=== PATIENT | male | born 1950 | race Caucasian/White ===

== ENCOUNTER 2025-04-28 08:26 | Day surgery (SDC) | payer MEDICARE, SELFPAY ==
--- OUTSIDE RECORDS SUMMARY | 2024-02-27 09:32 | XMS_ITS | Encounter Summary ---
Author Organization [facility] [place] [address] Care Team Providers Care Bradder Name Role Phone Kanu Beltrán MD Primary Care Provider [phone] Encounter Details Date Type Department Care Team (Late st Contact Info) Description 02/27/2024 10:32 AM EDT Hospital Encounter TH HISTORIC ENCOUNTERS EASTERN CONVERSION ONLY Renan Eid MD [address] [place] [phone] Social History Tobacco Use Types Packs/Day Years Used Date Smoking Tobacco: Former Smokeless Tobacco: Never Alcohol Use Standard Drinks/Week Comments Yes 0 (1 standard drink = 0.6 oz pur e alcohol) Sex and Gender Information Value Date Recorded Sex Assigned at Not on file Legal Sex Male 5:51 PM EST Gender Identity Not on file Sexual Orientation Not on file documented as of this encounter Last Filed Vital Signs Vital Sign Reading Time Taken Comments Blood Pressure 139/52 02/27/2024 11:02 AM EDT Sitting Left arm Pulse 66 02/27/2024 11:02 AM EDT Temperature - - Respiratory Rate - - Oxygen Saturation - - Inhaled Oxygen Concentration - - Weight 86.9 kg (191 lb 9.6 oz) 02/27/2024 11:02 AM EDT Height 170.2 cm (5' 7 ) 02/06/2022 10:0 7 AM EDT Body Mass Index 30.01 02/06/2022 10:07 AM EDT documented in this encounter Progress Notes * Renan Eid MD - 02/27/2024 10:45 AM EDT Images from the original note were not included. Progress Notes by Renan Ruiz MD at 02/27/2024 10:45 AM Author: Renan Ruiz MD Service: -- Author Type: Physician Filed: 02/29/2024 12:03 PM Encounter Date: 02/27/2024 Status: Signed Elder Assistant: Renan Ruiz MD (Physician) CHIEF COMPLAINT: Chief Complaint Patient presents with ? Follow-up CLL Stage 0 disease, on clinical surveillance IDENTIFIER:Easton Fitzgerald is a 73 y.o. male. HPI: The patient returns for follow up of CLL , annual follow-up visit He returns for follow-up of lab work. He has been feeling well. He did lose some weight, with change in diabetic medication. He remains active. 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 ?? Patient recalls that he has been followed at [facility], hadCT imaging and later at [facility] by Dr. Swanson, for CLL. This was initially diagnosed in 2016 and had patient had CT scans for staging. These results are reviewed from the [facility] system. Patient remains asymptomatic.He does have ongoing issues with her diabetes control, hypertension, esophageal reflux, hyperlipidemia. ?? Family history is positive for mother who had CLL. ?? Patient denies any B symptoms such as weight loss, drenching night sweats or recurrent fevers. He has occasional non-drenching night sweats once a month or so. ?? Initial staging CT scan showed scattered nodes in the neck and patient had ENT evaluation by Dr. Penn, no concerns and no need for biopsy. Review does start reveal any FISH testing performed previously. I will attempt to obtain records from [facility]. PLAN -- 67-year-old man with clinical stage 1 CLL, with lymphocytosis, but without any cytopenias, organomegaly or significant adenopathy, and without any significant B symptoms. I reviewed with the patient regarding the natural history and monitoring course for chronic lymphocytic leukemia. In his case, it is unclear whether a flow cytometry and FISH testing was performed, possibly duringhospital. I will attempt to obtain these results. If not, I will had these tests to the next round of lab work. A majority of patients require clinical surveillance and labs surveillance but did not require treatment for many years. Since his initial diagnosis more than 2 years ago, patient has remained well. He does have family history of CLL and there is some slight increase in the risk in first degree relatives. I discussed with the patient regarding the symptoms and signs of progressive disease. At this time I recommend annual lab work with CBC, differential count, LDH and to return to clinic for follow-up at annual intervals. If he develops any significant adenopathy, weight loss that is unintentional, or recurrent fevers or chills he will return to clinic sooner. Patient is in agreement with this plan. Cancer Staging No matching staging information was found for the patient. Oncology History No history exists. ROS: GENERAL: No malaise, significant weight loss or fever Stable weight NECK: No lumps, goiter, pain or significant neck swelling RESPIRATORY: No cough, wheezing or shortness of breath CARDIOVASCULAR: No chest pain, leg swelling or palpitations GI: No abdominal discomfort, blood in stools or black stools MUSCULOSKELETAL: No joint pain or swelling, back pain, or muscle pain. HEMATOLOGY/LYMPHOLOGY No prolonged bleeding, easy bruisability or swollen nodes Other Systems review is non contributory PAST MEDICAL HISTORY: Active Ambulatory Problems Diagnosis Date Noted ? CLL (chronic lymphocytic leukemia) (HCC) 02/01/2018 ? Essential hypertension 02/01/2018 ? Diabetes mellitus type 2, insulin dependent (HCC) 02/01/2018 ? Mixed hyperlipidemia 02/01/2018 ? Malignant melanoma of torso excluding breast (HCC) 01/28/2021 Resolved Ambulatory Problems Diagnosis Date Noted ? No Resolved Ambulatory Problems No Additional Past Medical History SOCIAL HISTORY: Social History Tobacco Use ? Smoking status: Former ? Smokeless tobacco: Never Substance Use Topics ? Alcohol use: Yes Comment: couple of beer a week FAMILY HISTORY: History reviewed. No pertinent family history. Current Outpatient Medications: ? aspirin EC 81 MG tablet, Take 1 tablet (81 mg total) by mouth daily., Disp: , Rfl: ? atorvastatin (LIPITOR) tablet 20 mg, Take 1 tablet (20 mg total) by mouth daily., Disp: , Rfl: ? dulaglutide (TRULICITY) 1.5 MG/0.5ML subcutaneous pen-injector, Inject under the skin once a week. , Disp: , Rfl: ? glimepiride (AMARYL) tablet 2 mg, Take 1 tablet (2 mg total) by mouth every morning before breakfast., Disp: , Rfl: ? insulin glargine, concentrated, (TOUJEO SOLOSTAR U-300) 300 UNIT/ML injection, Inject 20 Units under the skin daily., Disp: , Rfl: ? latanoprost (XALATAN) 0.005 % ophthalmic solution, Place 1 drop into both eyes every night at bedtime., Disp: , Rfl: ? lisinopril (PRINIVIL,ZESTRIL) tablet 10 mg, Take 1 tablet (10 mg total) by mouth daily., Disp: , Rfl: ? metFORMIN (FORTAMET) ER 24 hr tablet 1000 mg, Take 1 tablet (1,000 mg total) by mouth 2 (two) times a day with meals., Disp: , Rfl: ? Multiple Vitamins-Minerals (MULTIVITAMIN ADULT PO), Take 1 tablet by mouth daily., Disp: , Rfl: ? pantoprazole (PROTONIX) 20 MG tablet, Take 1 tablet (20 mg total) by mouth daily., Disp: , Rfl: You are allergic to the following Date Reviewed: 01/31/2019 No active allergies PHYSICAL EXAM: BP 139/52 (BP Location: Left arm) Pulse 66 Temp 97.8 ??F (36.6 ??C) (Temporal) Wt 86.9 kg (191 lb 9.6 oz) SpO2 98% BMI 30.01 kg/m?? APPEARANCE: Alert and in no acute distress Looks well Stable weight EYES: PERRL, conjunctiva pink and sclera are Normal without icterus ORAL CAVITY: No erythema or exudates NECK: Neck supple, bilateral small 1 -2 cm Adenopathy, smaller on the left side HEART: RRR with normal S1 and S2, no murmurs, no gallops, no JVD appreciated LUNG: clear to auscultation bilaterally Percussion note normal LYMPH NODES: No palpable superficial adenopathy ABDOMEN: Bowel sounds normoactive, no bruits, soft, non-tender, without organomegaly or palpable masses EXTREMITIES: Extremities warm and well perfused without clubbing, cyanosis, rash or edema NEURO: Oriented X 3, no focal weakness; sensation is normal LABS: IMPRESSION: SNOMED CT(R) 1. CLL (chronic lymphocytic leukemia) (HCC) CHRONIC LYMPHOID LEUKEMIA, DISEASE 2. Malignant melanoma of torso excluding breast (HCC) MALIGNANT MELANOMA OF TRUNK 3. Essential hypertension ESSENTIAL HYPERTENSION PLAN: 73 year-old man with stage 0 CLL, on surveillance #1 CLL stage 0 /1, mild cervical adenopathy, initial diagnosis in 2016, stable so far No B- symptoms at this time, patient is reassured No symptoms of progression at this point, he is reassured Low risk for disease progression He will call for earlier appt if needed Otherwise check labs every 6 mo latest WBC count has continued to decrease, reassuring CBC-D, IGG, LDH -- request provided, patient prefers to do labs lab in [facility] Patient concerned about disease progression, reviewed natural history He is also family history, CLL in his mother, that contributes to anxiety Will need FISH testing at time of progression, prior to initiating treatment Hold off further biopsies at this time as he does not have any significant symptoms #2 Diabetes mellitus, follow up with PCP, improving He lost weight about 30 pounds, with treatment/Trulicity Has gained some of it back #3 Hypertension -control is improved after weight loss 4 -- Malignant melanoma, of the back, had staging imaging at that time, did not reveal any adenopathy Continue dermatology follow-up, has appointment #5 COVID-19,-episode in 2021 fully vaccinated, and received antibody at the time of infection and recovered quickly Clinic follow-up in a year, sooner if he experiences any lymphadenopathy or B symptoms patient agrees with plan. Pain Control--no issues Health Care Proxy-- Renan Ruiz MD Cc Kanu Beltrán MD documented in this encounter Plan of Treatment Upcoming Encounters Date Type Department Care Team (Late st Contact Info) Description 02/11/2026 10:00 AM EDT Office Visit [facility] Hematology Oncology [address] [place] [phone] Dinesh-Renan Don MD [address] [place] [phone] documented as of this encounter Procedures Procedure Name Priority Date/Time Associated Diagnosis Comments ..MISCELLANEOUS REFERENCE LAB TEST 02/27/2024 documented in this encounter Results * Miscellaneous reference lab test (02/27/2024) us Provider Onbase MD LAB BLOOD ORDERABLES Final Re sult documented in this encounter Visit Diagnoses Not on filedocumented in this encounter Care Teams Bradder Relationship Specialty Start Date End Date Kanu Beltrán MD [address] [place] [phone] PCP - General Internal Medicine 01/22/18 documented as of this encounter
--- OUTSIDE RECORDS SUMMARY | 2025-04-17 10:57 | XMS_ITS | Clinical Summary ---
Author Organization [facility] Address [address] [place] [phone] Phone Care Team Providers Care Emergency Medicine Specialist Name Role Phone Kanu Beltrán MD Primary Care Provider [phone] Allergies No known active allergies Medications aspirin 81 mg EC tablet Take 1 tablet (81 mg total) by mouth 1 (one) time each day. Active atorvastatin (LIPITOR) 20 mg tablet Take 1 tablet (20 mg total) by mouth 1 (one) time each day. Active blood sugar diagnostic (OneTouch Verio test strips) test strip TEST 3 TIMES A DAY DIRECTED 5 Active DULAGLUTIDE SUBQ Inject under the skin. Active glimepiride (AMARYL) 2 mg tablet Take 1 tablet (2 mg total) by mouth. 0 Active Toujeo SoloStar U-300 Insulin 300 unit/mL (1.5 mL) CONCENTRATED injection pen INJECT 10-20 UNITS ONCE DAILY 5 Active latanoprost (XALATAN) 0.005 % ophthalmic solution INSTILL 1 DROP INTO BOTH EYES DAILY Active lisinopriL (PRINIVIL,ZESTRIL ) 10 mg tablet Take 1 tablet (10 mg total) by mouth 1 (one) time each day. Active metFORMIN (GLUCOPHAGE) 1,000 mg tablet Take 1 tablet (1,000 mg total) by mouth 2 (two) times a day. Active pantoprazole (PROTONIX) 40 mg EC tablet TAKE 1 TABLET DAILY for 30 9 Active Active Problems Problem Noted Date Diagnosed Date Right bundle branch block 02/11/2025 Bradycardia 02/11/2025 Malignant melanoma of torso excluding breast ([facility] V24, [facility] V28) 01/28/2021 CLL (chronic lymphocytic rudy kemia) ([facility] V24, [facility] V28) 02/01/2018 Essential hypertension 02/01/2018 Encounters Date Type Department Care Team Description 02/11/2025 10:00 AM EDT Office Visit [facility] Hematology Oncology [address] [place] [address] Renan Eid MD CLL (chronic lymphocytic leukemia) ([facility] V24, [facility] V28) (Primary Dx); Malignant melanoma of torso excluding breast ([facility] V24, [facility] V28); Bradycardia from Last 3 Months Social History Tobacco Use Types Packs/Day Years Used Date Smoking Tobacco: Former Smokeless Tobacco: Never Alcohol Use Standard Drinks/Week Comments Yes 0 (1 standard drink = 0.6 oz pur e alcohol) Sex and Gender Information Value Date Recorded Sex Assigned at Not on file Legal Sex Male 5:51 PM EST Gender Identity Not on file Sexual Orientation Not on file Obstetrics History Last Filed Vital Signs Vital Sign Reading Time Taken Comments Blood Pressure 129/47 02/11/2025 10:10 AM EDT Pulse 50 02/11/2025 10:05 AM EDT Temperature 36.7 C (98 F) 02/11/2025 10:05 AM EDT Respiratory Rate - - Oxygen Saturation 100% 02/11/2025 10:05 AM EDT Inhaled Oxygen Concentration - - Weight 86.3 kg (190 lb 3.2 oz) 02/11/2025 10:05 AM EDT Height 170.2 cm (5' 7 ) 02/11/2025 10:05 AM EDT Body Mass Index 29.79 02/11/2025 10:05 AM EDT Plan of Treatment Upcoming Encounters Date Type Department Care Team (Late st Contact Info) Description 02/11/2026 10:00 AM EDT Office Visit [facility] Hematology Oncology [address] [place] [phone] Renan Eid MD [address] [place] [phone] Health Maintenance Due Date Last Done Comments Colorectal Cancer Screening: Colonoscopy 1949 Diabetes: Annual Foot Exam 1959 Diabetes: Annual Retina Eye Exam 1960 Abdominal Aortic Aneurysm (AAA) Screen 05/05/2022 Cholesterol Screening (Lipid Panel) 05/05/2022 Falls Risk Assessment 05/05/2022 Hepatitis C Screening 05/05/2022 Medicare Annual Wellness Visit 05/05/2022 Social Influencers of Health Screening 05/05/2022 Depression Screening 05/28/2024 COVID-19 Vaccine ( season) 2025 02/21/2024, 03/16/2023, 03/08/2022, Additional history exists Influenza Vaccine (#1) 2025 , 01/26/2023, 03/08/2022, Additional history exists Diabetes: Annual Urine Albumin-Creatinine Ratio (uACR) 02/09/2025 Diabetes: Blood Sugar Control Test (HGBA1C) 02/09/2025 DTaP,Tdap,and Td Vaccines (2 - Td or Tdap) 08/29/2025 08/30/2015 Diabetes: Annual GFR (Glomerular Filtration Rate) 02/09/2026 02/09/2025 Hypertension/CHF/CAD Annual BMP Blood Test 02/09/2026 02/09/2025 Varicella Vaccines Aged Out 11/16/2021, 09/13/2021 No longer eligible based on patient's age to complete this topic Zoster Vaccines Completed 11/16/2021, 10/27, 09/13/2021, Additional history exists Pneumococcal Vaccine: 50+ Years Completed 02/15/2022, 12/23/2015, 08/24/2006 RSV Immunization Adult Patients Completed 02/09/2023 HIB Vaccines Aged Out No longer eligi ble based on patient's age to complete this topic HPV Vaccines Aged Out No longer eligi ble based on patient's age to complete this topic Hepatitis A Vaccines Aged Out No long er eligible based on patient's age to complete this topic Hepatitis B Vaccines Aged Out No long er eligible based on patient's age to complete this topic IPV Vaccines Aged Out No longer eligi ble based on patient's age to complete this topic MMR Vaccines Aged Out No longer eligi ble based on patient's age to complete this topic Meningococcal ACWY Vaccine Aged Out N o longer eligible based on patient's age to complete this topic Meningococcal B Vaccine Aged Out No l onger eligible based on patient's age to complete this topic RSV Immunization Patients Under 20 months Aged Out No longer eligible based on patient's age to complete this topic Procedures Procedure Name Priority Date/Time Associated Diagnosis Comments RBC MORPHOLOGY REVIEW Routine 02/09/2025 11:30 AM EDT CLL (chronic lymphocytic leukemia) ([facility] V24, [facility] V28) CBC WITH AUTO DIFFERENTIAL Routine 02/09/2025 11:30 AM EDT CLL (chronic lymphocytic leukemia) ([facility] V24, [facility] V28) CBC AND DIFFERENTIAL Routine 02/09/2025 11:30 AM EDT CLL (chronic lymphocytic leukemia) ([facility] V24, [facility] V28) COMPREHENSIVE METABOLIC PANEL Routine 02/09/2025 11:30 AM EDT CLL (chronic lymphocytic leukemia) ([facility] V24, [facility] V28) LACTATE DEHYDROGENASE Routine 02/09/2025 11:30 AM EDT CLL (chronic lymphocytic leukemia) ([facility] V24, [facility] V28) IMMUNOGLOBULIN IGG Routine 02/09/2025 11 :30 AM EDT CLL (chronic lymphocytic leukemia) ([facility] V24, [facility] V28) from Last 3 Months Results * (ABNORMAL) RBC morphology review (02/09/2025 11:30 AM EDT) Rbc Morphology Consistent with indices Consistent with indices, Normal for LAB HEMETOLOGY METHOD 02/09/2025 2:08 PM EDT [facility] Platelet Morphology - WAM See Note(A) Normal LAB HEMETOLOGY METHOD 02/09/2025 2:08 PM EDT [facility] Comment:PLT: Normal Blood Venous blood specimen / Unknown Venipuncture / Unknown 02/09/2025 11:30 AM EDT 02/09/2025 12:00 PM EDT Renan Eid MD LAB BLOOD ORDERABLE S Final Result [facility] [address] [place] [address], * (ABNORMAL) CBC auto differential (02/09/2025 11:30 AM EDT) WBC 20.4(H) 4.8 - 10.8 K/mcL LAB HEMETOLOGY METHOD 02/09/2025 2:08 PM EDT [facility] RBC 4.00(L) 4.50 - 5.50 M/mcL LAB HEMETOLOGY METHOD 02/09/2025 2:08 PM EDT [facility] Hemoglobin 12.5(L) 13.5 - 17.5 g/dL LAB HEMETOLOGY METHOD 02/09/2025 2:08 PM EDT [facility] Hematocrit 36.6(L) 42.0 - 54.0 % LAB HEMETOLOGY METHOD 02/09/2025 2:08 PM EDT [facility] MCV 92.7 79.0 - 98.0 FL LAB HEMETOLOGY METHOD 02/09/2025 2:08 PM EDT [facility] MCH 31.6 27.0 - 32.0 pcg LAB HEMETOLOGY METHOD 02/09/2025 2:08 PM EDT [facility] MCHC 34.2 32.0 - 37.0 g/dL LAB HEMETOLOGY METHOD 02/09/2025 2:08 PM [facility] RDW 13.2 11.0 - 15.0 % LAB HEMETOLOGY METHOD 02/09/2025 2:08 PM EDT [facility] Platelets 172 130 - 400 K/mcL LAB HEMETOLOGY METHOD 02/09/2025 2:08 PM [facility] MPV 11.4(H) 7.0 - 11.0 FL LAB HEMETOLOGY METHOD 02/09/2025 2:08 PM [facility] NRBC 0.0 <1.0 % LAB HEMETOLOGY METHOD 02/09/2025 2:08 PM [facility] NRBC Absolute 0.00 <0.10 K/mcL LAB HEMETOLOGY METHOD 02/09/2025 2:08 PM [facility] Neutrophils Relative 16.8 % LAB HEMETOLOGY METHOD 02/09/2025 2:08 PM [facility] Comment:This is an appended report. These results have been appended to a previously preliminary verified report. Lymphocytes Relative 79.8 % LAB HEMETOLOGY METHOD 02/09/2025 2:08 PM [facility] Comment:This is an appended report. These results have been appended to a previously preliminary verified report. Monocytes Relative 2.8 % LAB HEMETOLOGY METHOD 02/09/2025 2:08 PM [facility] Comment:This is an appended report. These results have been appended to a previously preliminary verified report. Eosinophils Relative 0.2 % LAB HEMETOLOGY METHOD 02/09/2025 2:08 PM [facility] Comment:This is an appended report. These results have been appended to a previously preliminary verified report. Basophils Relative 0.2 % LAB HEMETOLOGY METHOD 02/09/2025 2:08 PM [facility] Comment:This is an appended report. These results have been appended to a previously preliminary verified report. Immature Granulocytes Relative 0.2 % LAB HEMETOLOGY METHOD 02/09/2025 2:08 PM [facility] Comment:This is an appended report. These results have been appended to a previously preliminary verified report. Neutrophils Absolute 3.43 1.50 - 7.00 K/mcL LAB HEMETOLOGY METHOD 02/09/2025 2:08 PM EDT [facility] Comment:This is an appended report. These results have been appended to a previously preliminary verified report. Lymphocytes Absolute 16.30(H) 1.00 - 5.00 K/mcL LAB HEMETOLOGY METHOD 02/09/2025 2:08 PM EDT [facility] Comment:This is an appended report. These results have been appended to a previously preliminary verified report. Monocytes Absolute 0.57 0.20 - 1.00 K/mcL LAB HEMETOLOGY METHOD 02/09/2025 2:08 PM EDT [facility] Comment:This is an appended report. These results have been appended to a previously preliminary verified report. Eosinophils Absolute 0.05 0.00 - 0.50 K/mcL LAB HEMETOLOGY METHOD 02/09/2025 2:08 PM EDT [facility] Comment:This is an appended report. These results have been appended to a previously preliminary verified report. Basophils Absolute 0.04 0.00 - 0.20 K/[facility] LAB HEMETOLOGY METHOD 02/09/2025 2:08 PM EDT [facility] Comment:This is an appended report. These results have been appended to a previously preliminary verified report. Immature Granulocytes Absolute 0.04(H) 0.00 - 0.03 K/[facility] LAB HEMETOLOGY METHOD 02/09/2025 2:08 PM T [facility] Comment:This is an appended report. These results have been appended to a previously preliminary verified report. Blood Venous blood specimen / Unknown Venipuncture / Unknown 02/09/2025 11:30 AM EDT 02/09/2025 12:00 PM EDT us Subramony Stanton TODD LAB BLOOD ORDERABLE S Final Result [facility] [address] [place] [address], [place] [phone] * Lactate dehydrogenase (02/09/2025 11:30 AM EDT) [facility] LDH 157 120 - 246 unit/L LAB CHEMISTRY METHOD 02/09/2025 2:46 PM EDT [facility] Blood Venous blood specimen / Unknown Venipuncture / Unknown 02/09/2025 11:30 AM EDT 02/09/2025 11:58 AM EDT us Renan Eid MD LAB BLOOD ORDERABLE S Final Result Performing Organization Address [facility] de Phone Number [facility] [address] [place] [address], [place] [phone] * (ABNORMAL) Immunoglobulin IgG (02/09/2025 11:30 AM EDT) [facility] Total IgG 249(L) 549 - 1,584 mg/dL LAB CHEMISTRY METHOD 02/09/2025 2:46 PM EDT [facility] Blood Venous blood specimen / Unknown Venipuncture / Unknown 02/09/2025 11:30 AM EDT 02/09/2025 11:58 AM EDT us Renan Eid MD LAB BLOOD ORDERABLE S Final Result Performing Organization Address [facility] Co de Phone Number [facility] [address] [place] [address], [place] [phone] * (ABNORMAL) Comprehensive metabolic panel (02/09/2025 11:30 AM EDT) [facility] Sodium 136 133 - 145 mmol/L LAB CHEMISTRY METHOD 02/09/2025 2:46 PM EDT [facility] Potassium 4.5 3.5 - 5.5 mmol/L LAB CHEMISTRY METHOD 02/09/2025 2:46 PM [facility] Chloride 105 96 - 110 mmol/L LAB CHEMISTRY METHOD 02/09/2025 2:46 PM [facility] CO2 23 21 - 32 mmol/L LAB CHEMISTRY METHOD 02/09/2025 2:46 PM [facility] Anion Gap 8 3 - 11 LAB CHEMISTRY METHOD 02/09/2025 2:46 PM [facility] Glucose 251(H) 70 - 100 mg/dL LAB CHEMISTRY METHOD 02/09/2025 2:46 PM [facility] BUN 20 5 - 25 mg/dL LAB CHEMISTRY METHOD 02/09/2025 2:46 PM [facility] Creatinine 1.01 0.70 - 1.30 mg/dL LAB CHEMISTRY METHOD 02/09/2025 2:46 PM [facility] eGFR 78 >=60 mL/min/1. 73m2 LAB CHEMISTRY METHOD 02/09/2025 2:46 PM [facility] Comment:Calculation based on the Chronic Kidney Disease Epidemiology Collaboration (CKD-EPI) equation refit without adjustment for race. BUN/Creatinine Ratio 19.8 LAB CHEMISTRY METHOD 02/09/2025 2:46 PM [facility] Calcium 8.9 8.5 - 10.5 mg/dL LAB CHEMISTRY METHOD 02/09/2025 2:46 PM [facility] AST (SGOT) 20 10 - 42 unit/L LAB CHEMISTRY METHOD 02/09/2025 2:46 PM [facility] ALT (SGPT) 27 10 - 60 unit/L LAB CHEMISTRY METHOD 02/09/2025 2:46 PM [facility] Alkaline Phosphatase 90 42 - 121 unit/L LAB CHEMISTRY METHOD 02/09/2025 2:46 PM [facility] Total Protein 6.0 6.0 - 8.0 g/dL LAB CHEMISTRY METHOD 02/09/2025 2:46 PM EDT [facility] Albumin 4.0 3.2 - 5.0 g/dL LAB CHEMISTRY METHOD 02/09/2025 2:46 PM EDT [facility] Total Bilirubin 0.9 0.0 - 1.4 mg/dL LAB CHEMISTRY METHOD 02/09/2025 2:46 PM EDT [facility] Blood Venous blood specimen / Unknown Venipuncture / Unknown 02/09/2025 11:30 AM EDT 02/09/2025 11:58 AM EDT us Subramony Stanton TODD LAB BLOOD ORDERABLE S Final Result [facility] [address] [place] [address], [place] [phone] from Last 3 Months Insurance [employer] - [place] MEDICARE ADVANTAGE Care Teams Emergency Medicine Specialist Relationship Specialty Start Date End Date Kanu Beltrán MD [address] [place] [phone] PCP - General Internal Medicine 01/22/18
--- OUTSIDE RECORDS SUMMARY | 2025-04-17 10:58 | XMS_ITS | Patient Health Record ---
Author Organization [facility] Address [address] [place] [phone] Care Team Providers Care Broomcorn Seeder Name Role Phone Kanu Beltrán MD Primary Care Provider Richardson Borges Jr Unavailable Allergies No Known Allergies Reason For Referral No Information Medications Medication SIG (Take, Route, Frequency, Duration) Notes Start Date End Date Status ZyrTEC 10 MG Tablet Chewable 1 tablet Orally Once a day; Duration: 30 day(s) 03/30/2022 Not-Taking/PRN Toujeo Max SoloStar 300 UNIT/ML Solution Pen-injector as directed Subcutaneous 03/30/2022 Active Trulicity 0.75 MG/0.5ML Solution Pen-injector as directed Subcutaneous 03/30/2022 Active Multivitamin - Tablet 1 tablet Orally On ce a day; Duration: 30 day(s) 03/30/2022 Active Vitamin C 1000 MG Tablet 1 tablet Orally Once a day; Duration: 30 day(s) 03/30/2022 Active Lisinopril 10 MG Tablet Oral; Duration: 90 Active Glimepiride 2 MG Tablet Oral; Duration: 90 Active Atorvastatin Calcium 20 MG Tablet Oral; Duration: 90 Active Pantoprazole Sodium 40 MG Tablet Delayed Release TAKE 1 TABLET DAILY; Duration: 30 Active metFORMIN HCl 1000 MG Tablet Oral; Duration: 90 Active Lili Allergy 180 MG Tablet 1 tablet Swallow whole with water; do not take with fruit juices. Orally Once a day Active Aleve 220 MG Tablet 1 tablet with food o r milk as needed Orally every 12 hrs 03/30/2022 Not-Taking/PRN Immunizations Vaccine Route Administration Date Status Comme nts Influenza Unknown 02/25/2022 Administered Influenza Unknown 02/26/2024 Administered Social History Tobacco Use: Social History Observation Description Date Details (start date - stop date) Former Smoker NA - NA Social History Drug/Alcohol: Social Info Question Answer Notes AUDIT-C (Standard) Did you have a drink containing alcohol in the past year? Yes How often did you have a drink containing alcohol in the past year? 2 to 3 times a week (3 points) How many drinks did you have on a typical day when you were drinking in the past year? 1 or 2 drinks (0 point) How often did you have six or more drinks on one occasion in the past year? Never (0 point) Points 3 Interpretation Negative Tobacco Use: Social Info Question Answer Notes Tobacco Use/Smoking Patient is a former smoker How long has it been since you last smoked? > 10 years Additional Details Category Social Info Options Details Miscellaneous: Marital status: Occupation: retired Problems Problem Type SNOMED Code ICD Code Onset Dates Problem Status W/U Status Risk Notes Problem Colon cancer screening (489108605) Colon cancer screening (Z12.11) Active confirmed Problem Abdominal pain (43592059) Abdominal pain (R10.9) Active confirmed Problem Diarrhea (58032048) Diarrhea (R19.7) Active con firmed Problem Gastroesophageal reflux disease (722765239) Gastroesophageal reflux disease, unspecified whether esophagitis present (K21.9) Active confirmed Vital Signs Temperature 98.6 degrees Fahrenheit 02/25/2025 Blood pressure diastolic 01 mm Hg 02/25/2025 Height 69 in 02/25/2025 Blood pressure systolic 001 mm Hg 02/25/2025 Weight 193.6 lbs 02/25/2025 BMI 28.59 kg/m2 02/25/2025 Encounters Encounter Location Date Provider Diagnosis [facility] [address] [place] [phone] 02/25/2025 Richardson Soto Jr Gastroesophageal reflux disease, unspecified whether esophagitis present K21.9 ; Diarrhea R19.7 ; Abdominal pain R10.9 and Colon cancer screening Z12.11 [facility] [address] [place] [address] 02/26/2025 Richardson Soto Jr Assessments Encounter Date Diagnosis (ICD Code) Assessment Notes Treatment Notes Treatment Clinical Notes Section Notes 02/25/2025 Diarrhea (ICD-10 - R19.7) We discussed his symptoms today. We have recommended further evaluation with upper endoscopy and colonoscopy. We discussed risks and benefits of both procedures today. He understands these and agrees to proceed. He is advised to stop aspirin and Trulicity 1 week before the procedure. He should stop metformin and glimepiride the day before the procedure and take half of his long-acting insulin the night before the prep and procedure. He is aware of these recommendations. We discussed gastroesophageal reflux disease, and treatment with diet, lifestyle modifications, and weight management. He will continue these measures. Follow-up will be in 12 months, sooner if necessary. Today's visit was 40 minutes. 02/25/2025 Gastroesophageal reflux disease, unspecified whether esophagitis present (ICD-10 - K21.9) We discussed his symptoms today. We have recommended further evaluation with upper endoscopy and colonoscopy. We discussed risks and benefits of both procedures today. He understands these and agrees to proceed. He is advised to stop aspirin and Trulicity 1 week before the procedure. He should stop metformin and glimepiride the day before the procedure and take half of his long-acting insulin the night before the prep and procedure. He is aware of these recommendations. We discussed gastroesophageal reflux disease, and treatment with diet, lifestyle modifications, and weight management. He will continue these measures. Follow-up will be in 12 months, sooner if necessary. Today's visit was 40 minutes. 02/25/2025 Abdominal pain (ICD-10 - R10.9) We discussed his symptoms today. We have recommended further evaluation with upper endoscopy and colonoscopy. We discussed risks and benefits of both procedures today. He understands these and agrees to proceed. He is advised to stop aspirin and Trulicity 1 week before the procedure. He should stop metformin and glimepiride the day before the procedure and take half of his long-acting insulin the night before the prep and procedure. He is aware of these recommendations. We discussed gastroesophageal reflux disease, and treatment with diet, lifestyle modifications, and weight management. He will continue these measures. Follow-up will be in 12 months, sooner if necessary. Today's visit was 40 minutes. 02/25/2025 Colon cancer screening (ICD-10 - Z12.11) We discussed his symptoms today. We have recommended further evaluation with upper endoscopy and colonoscopy. We discussed risks and benefits of both procedures today. He understands these and agrees to proceed. He is advised to stop aspirin and Trulicity 1 week before the procedure. He should stop metformin and glimepiride the day before the procedure and take half of his long-acting insulin the night before the prep and procedure. He is aware of these recommendations. We discussed gastroesophageal reflux disease, and treatment with diet, lifestyle modifications, and weight management. He will continue these measures. Follow-up will be in 12 months, sooner if necessary. Today's visit was 40 minutes. Plan Of Treatment Future Test Test Name Order Date UPPER GI ENDOSCOPY 02/25/2025 COLONOSCOPY 02/25/2025 Next Appt Details Provider Name:Richardson perez Jr, 04/28/2025 10:50:00 AM, [address] [place] [address], [phone], Insurance Providers Payer Name Payer Address Payer Phone Subscriber Number Group Number Insured Name Patient Relationship to Insured Coverage Start Date Coverage End Date [employer] [address] [place] [address] [id number] JASMINMELINA Self - patient is the insured Medical (General) History Medical History History ICD Code Environmental allergies Nephrolithiasis Diabetes mellitus type 2 CLL Hypertension Elevated cholesterol Bifascicular block Malignant melanoma Gastroesophageal reflux disease upper en doscopy 11/19/14 no BE or HP Colonoscopy 11/19/14, diverticulosis, ten -year followup Surgical History Surgery Date(Month/Year) KNEE ARTHOSCOPIC LEFT Melanoma excision, left back, axillary l ymph node biopsy 05/16 tonsillectomy
--- OUTSIDE RECORDS SUMMARY | 2025-04-17 10:58 | XMS_ITS | Clinical Summary ---
Author Organization [facility] Address [address] [place] [address] Care Team Providers Care Cardio Tech Name Role Phone Kanu Beltrán MD Primary Care Provider [phone] Allergies No known active allergies Medications Medication Sig Dispensed Refills Start Date End Date Status lisinopril (PRINIVIL,ZESTRIL) tablet 10 mg Take 1 tablet (10 mg total) by mouth daily. 0 Active metFORMIN (FORTAMET) ER 24 hr tablet 1000 mg Take 1 tablet (1,000 mg total) by mouth 2 (two) times a day with meals. 0 Active atorvastatin (LIPITOR) tablet 20 mg Take 1 tablet (20 mg total) by mouth daily. 0 Active insulin glargine, concentrated, (TOUJEO SOLOSTAR U-300) 300 UNIT/ML injection Inject 20 Units under the skin daily. 0 Active aspirin EC 81 MG tablet Take 1 tablet (81 mg total) by mouth daily. 0 Active Multiple Vitamins-Minerals (MULTIVITAMIN ADULT PO) Take 1 tablet by mouth daily. 0 Active pantoprazole (PROTONIX) 20 MG tablet Take 1 tablet (20 mg total) by mouth daily. 0 Active latanoprost (XALATAN) 0.005 % ophthalmic solution Place 1 drop into both eyes every night at bedtime. 0 Active dulaglutide (TRULICITY) 1.5 MG/0.5ML subcutaneous pen-injector Inject under the skin once a week. 0 Active glimepiride (AMARYL) tablet 2 mg Take 1 tablet (2 mg total) by mouth every morning before breakfast. 0 Active Active Problems Problem Noted Date Diagnosed Date Malignant melanoma of torso excluding breast 09/ 07/2020 CLL (chronic lymphocytic leukemia) 02/01/2018 Essential hypertension 02/01/2018 Diabetes mellitus type 2, insulin dependent 11/2017 Mixed hyperlipidemia 02/01/2018 Social History Tobacco Use Types Packs/Day Years Used Date Smoking Tobacco: Former Smokeless Tobacco: Never Alcohol Use Standard Drinks/Week Comments Yes 0 (1 standard drink = 0.6 oz pur e alcohol) couple of beer a week Sex and Gender Information Value Date Recorded Sex Assigned at Not on file Gender Identity Not on file Sexual Orientation Not on file Job Start Date Occupation Industry Not on file Not on file Not on file Last Filed Vital Signs Vital Sign Reading Time Taken Comments Blood Pressure 139/52 02/27/2024 11:02 AM EDT Pulse 66 02/27/2024 11:02 AM EDT Temperature 36.6 C (97.8 F) 02/27/2024 11:02 AM EDT Respiratory Rate - - Oxygen Saturation 98% 02/27/2024 11:02 AM EDT Inhaled Oxygen Concentration - - Weight 86.9 kg (191 lb 9.6 oz) 02/27/2024 11:02 AM EDT Height 170.2 cm (5' 7 ) 02/06/2022 10:07 AM EDT Body Mass Index 30.01 02/06/2022 10:07 AM EDT Plan of Treatment Health Maintenance Due Date Last Done Comments Hepatitis C Screening 1949 COVID-19 Vaccine (#1) 1954 Depression Screening 1961 Preventative Health Evaluation 1967 Shingrix-Zoster Vaccine (1 o f 2) 1968 Colon Cancer Screening (Colonoscopy) 1994 Fall Risk Assessment 2014 Pneumococcal Vaccine (3 of 3 - PPSV23 or PCV20) 02/17/2016 12/23/2015, 08/24/2006 RSV Adult > 60+ Yrs or (1 - 1-dose 75+ series) 2024 Influenza Vaccine (#1) 2025 6, 02/27/2015 DTap / Tdap / Td (2 - Td or Tdap) 08/29/2025 08/30/2015 Hepatitis B Vaccines Aged Out No long er eligible based on patient's age to complete this topic RSV Ped < 20 months Aged Out No longe r eligible based on patient's age to complete this topic Care Teams Cardio Tech Relationship Specialty Start Date End Date Kanu Beltrán MD [address] [place] [address] PCP - General Internal Medicine 01/22/18
[2025-04-22 14:56] VITALS: BMI 28.6
[2025-04-27 10:01] VITALS: BMI 28.5
--- NOTE | 2025-04-27 14:33 | HO.ANESPROP2 ---
Documented by User: Cele Serrato NP 04/27/25 14:37 HPI - Anesthesia Eval Consult details Narrative: 74yo M for Upper Endoscopy and Colonoscopy CLL *Hx DI* Anesthesia Pre-Procedure Meds Is the patient on any of the following meds?: GLP1/DPP4 PMFSH Past Medical History Medical History (Updated 04/27/25 @ 10:00 by Francisca Feng RN) CLL (chronic lymphocytic leukemia) Hx of difficult intubation Abdominal pain Diarrhea Diverticulosis GERD (gastroesophageal reflux disease) Hx of malignant melanoma Bifascicular block HLD (hyperlipidemia) HTN (hypertension) Diabetes Nephrolithiasis Environmental allergies Surgical History Surgical History (Updated 04/27/25 @ 09:57 by Francisca Feng RN) Hx of lymph node biopsy Hx of tonsillectomy Hx of melanoma excision Hx of arthroscopy of left knee (~2009) Hx of colonoscopy (11/19/14) History of esophagogastroduodenoscopy (EGD) (11/19/14) Social History Social History (Updated 04/27/25 @ 10:03 by Francisca Feng RN) Household Members: Spouse Housing: House Are you a primary continuum of care manager to a significant other at home: No Do you presently have visiting nurse or other home services: No Patient Tobacco Use Status: Former Tobacco user Tobacco use type: Cigarette Smoked in Last 30 Days: No Use of substances other than those prescribed or required for medical reasons: Yes Substance Use Type Other:: VAPES EVERY TWO WEEKS Have you been hit, kicked, punched, or otherwise hurt by someone within the past year? If so, by whom?: No Are you DNR?: No Advance Directives: No (will bring dos) Advance Directives Information Provided: Yes Advance Directives on File: No Meds Allergies Allergy/AdvReac Type Severity Reaction Status Date / Time No Known Allergies Allergy Verified 04/27/25 08:06 Home Medications ?Medication ?Instructions ?Recorded ?Confirmed ?Last Taken ?Type ascorbic acid (vitamin C) 1,000 mg 500 mg PO DAILY 04/22/25 04/27/25 Unknown History tablet (Vitamin C) atorvastatin 20 mg tablet 20 mg PO DAILY 04/22/25 04/22/25 Unknown History dulaglutide 0.75 mg/0.5 mL 0.75 mg subcut QWEEK 04/22/25 04/28/2525 History subcutaneous pen injector (Trulicity) fexofenadine 180 mg tablet 180 mg PO DAILY 04/22/25 04/22/25 Unknown History glimepiride 2 mg tablet 2 mg PO DAILY 04/22/25 04/22/25 Unknown History insulin glargine U-300 conc 300 10 unit subcut BEDTIME 04/22/25 04/27/25 Unknown History unit/mL (1.5 mL) subcutaneous pen (Toujeo SoloStar U-300 Insulin) latanoprost 0.005 % eye drops 1 drp ophthalmic (eye) DAILY 04/22/25 04/22/25 Unknown History lisinopril 10 mg tablet 10 mg PO DAILY 04/22/25 04/22/25 04/28/25 History metformin 1,000 mg tablet 1,000 mg PO BID 04/22/25 04/22/25 Unknown History pantoprazole 40 mg tablet,delayed 40 mg PO DAILY 04/22/25 04/22/25 Unknown History release multivitamin 1 tab PO DAILY 04/27/25 04/27/25 Unknown History Exam Height,Weight and Vital Signs: Height 5 ft 9 in Weight 87.543 kg Pertinent Lab Results Pertinent Lab Results: Lab Results Component Value Date ? WBC 20.4 (H) 02/09/2025 ? HGB 12.5 (L) 02/09/2025 ? HCT 36.6 (L) 02/09/2025 ? MCV 92.7 02/09/2025 ? PLT 172 02/09/2025 ? Lab Results Component Value Date ? NA 136 02/09/2025 ? K 4.5 02/09/2025 ? CL 105 02/09/2025 ? CO2 23 02/09/2025 ? GLUCOSE 251 (H) 02/09/2025 ? BUN 20 02/09/2025 ? CREATININE 1.01 02/09/2025 ? CALCIUM 8.9 02/09/2025 ? PROT 6.0 02/09/2025 ? ALBUMIN 4.0 02/09/2025 ? BILITOT 0.9 02/09/2025 ? AST 20 02/09/2025 ? ALT 27 02/09/2025 ? ALKPHOS 90 02/09/2025 ? EGFR 78 02/09/2025 Assessment and Plan Assessment Anesthesia Assessment: Chart Reviewed Documented by User: Navjot Kelly MD 04/28/25 10:01 [facility] Past Medical History Medical History (Updated 04/27/25 @ 10:00 by Francisca Feng, CORNELIO) CLL (chronic lymphocytic leukemia) Hx of difficult intubation Abdominal pain Diarrhea Diverticulosis GERD (gastroesophageal reflux disease) Hx of malignant melanoma Bifascicular block HLD (hyperlipidemia) HTN (hypertension) Diabetes Nephrolithiasis Environmental allergies Family History Family history of problems with anesthesia: No Surgical History Surgical History (Updated 04/27/25 @ 09:57 by Francisca Feng RN) Hx of lymph node biopsy Hx of tonsillectomy Hx of melanoma excision Hx of arthroscopy of left knee (~2009) Hx of colonoscopy (11/19/14) History of esophagogastroduodenoscopy (EGD) (11/19/14) History of Problems with Anesthesia: No Social History Social History (Updated 04/27/25 @ 10:03 by Francisca Feng RN) Household Members: Spouse Housing: House Are you a primary continuum of care manager to a significant other at home: No Do you presently have visiting nurse or other home services: No Patient Tobacco Use Status: Former Tobacco user Tobacco use type: Cigarette Smoked in Last 30 Days: No Use of substances other than those prescribed or required for medical reasons: Yes Substance Use Type Other:: VAPES EVERY TWO WEEKS Have you been hit, kicked, punched, or otherwise hurt by someone within the past year? If so, by whom?: No Are you DNR?: No Advance Directives: No (will bring dos) Advance Directives Information Provided: Yes Advance Directives on File: No Meds Allergies Allergy/AdvReac Type Severity Reaction Status Date / Time No Known Allergies Allergy Verified 04/27/25 08:06 Home Medications ?Medication ?Instructions ?Recorded ?Confirmed ?Last Taken ?Type ascorbic acid (vitamin C) 1,000 mg 500 mg PO DAILY 04/22/25 04/27/25 Unknown History tablet (Vitamin C) atorvastatin 20 mg tablet 20 mg PO DAILY 04/22/25 04/22/25 Unknown History dulaglutide 0.75 mg/0.5 mL 0.75 mg subcut QWEEK 04/22/25 04/28/25 04/15/25 History subcutaneous pen injector (Trulicity) fexofenadine 180 mg tablet 180 mg PO DAILY 04/22/25 04/22/25 Unknown History glimepiride 2 mg tablet 2 mg PO DAILY 04/22/25 04/22/25 Unknown History insulin glargine U-300 conc 300 10 unit subcut BEDTIME 04/22/25 04/27/25 Unknown History unit/mL (1.5 mL) subcutaneous pen (Toujeo SoloStar U-300 Insulin) latanoprost 0.005 % eye drops 1 drp ophthalmic (eye) DAILY 04/22/25 04/22/25 Unknown History lisinopril 10 mg tablet 10 mg PO DAILY 04/22/25 04/22/25 04/28/25 History metformin 1,000 mg tablet 1,000 mg PO BID 04/22/25 04/22/25 Unknown History pantoprazole 40 mg tablet,delayed 40 mg PO DAILY 04/22/25 04/22/25 Unknown History release multivitamin 1 tab PO DAILY 04/27/25 04/27/25 Unknown History Exam Exam Date and Time: 04/28/25 Airway Mallampati Class: II TM Dist: >3cm Neck ROM: Full Heart: rrr with skipped beats Lungs: ctab vesicular Assessment and Plan Assessment Anesthesia Assessment: Anesthesia Plan Discussed Final Anesthetic Review Family History of Problems with Anesthesia: No History of Problems with Anesthesia: No NPO: Yes ASA Class: III Final Preanesthetic Review: No Changes in Pt Med Stat, Meds/Allgs Chart Reviewed, Consent Obtained/Reviewed and Anes Risks/Benef Reviewed Patient Risk: Low Procedure Risk: Low Anesthetic Plan Anesthetic Plan: MAC: Disposition: Standard PACU
[2025-04-28 09:05] VITALS: BMI 27.6
[2025-04-28 09:12] VITALS: BP 133/52; PULSE 53; RESP 16; TEMP 36.3; O2SAT 98
[2025-04-28 09:21] LABS: Glucose, Whole Blood 158 mg/dL (60-115)
[2025-04-28] MEDS: Lactated Ringers 1,000 ML 100 ML IVCONT (09:23)
--- NOTE | 2025-04-28 09:55 | MHC.SHP ---
Pre-Procedural Eval Section A - 24 Hr Update-Section A only Date of Service: 04/28/25 Section B - Complete if H&P > 30 days Chief Complaint: screening,diarrhea,gerd,diarrhea Details of Present Illness: see H&P no changes Relevant Family History (Specify if Yes): No Relevant Social History: None Present Medications: see Short Stay Collaborative assessment Medical History: No relevant PMH History of Previous Operations: No relevant previous surgery Allergies: Allergies Allergy/AdvReac Type Severity Reaction Status Date / Time No Known Allergies Allergy Verified 04/27/25 08:06 Review of Systems Sugical H&P ROS: Negative: Constitution, Cardiovascular, Respiratory, Neurological, Psychiatric, Hem-Onc, Allergic/Immunologic, Gastrointestinal, Genitourinary, Musculoskeletal, Integumentary, Endocrine and Eyes/Ears/Nose/Throat Plan Diagnosis/Plan: Unchanged I have reviewed the history and physical and performed a pertinent physical examination on my patient. No changes have occurred unless specified. Time Spent With Patient Time: Total time managing care of this patient today ____ minutes.
[2025-04-28 09:58] VITALS: PULSE 47
--- NOTE | 2025-04-28 09:59 | ECG_ITS ---
Test Reason : PREOP Blood Pressure : */* mmHG Vent. Rate : 46 BPM Atrial Rate : 60 BPM P-R Int : * ms QRS Dur : 154 ms QT Int : 470 ms P-R-T Axes : 26 -68 -4 degrees QTcB Int : 411 ms Sinus rhythm with 2nd degree A-V block (Mobitz I) Right bundle branch block Left anterior fascicular block Bifascicular block Minimal voltage criteria for LVH, may be normal variant ( R in aVL ) Abnormal ECG No previous ECGs available Referred By: Navjot Kelly Electronically Signed By: MARTIN ESPINOZA
[2025-04-28 11:09] VITALS: BP 102/54; PULSE 64; RESP 13; TEMP 36.3; O2SAT 98
[2025-04-28 11:24] VITALS: BP 126/65; PULSE 51; RESP 14; TEMP 36.2; O2SAT 98
--- NOTE | 2025-04-28 11:51 | OP_ITS ---
DATE OF SERVICE: 04/28/2025 SURGEON: Richardson Soto MD INDICATIONS: Change in bowels and colon cancer screening. PREOPERATIVE DIAGNOSIS: POSTOPERATIVE DIAGNOSIS: PROCEDURE PERFORMED: Upper endoscopy with biopsy, colonoscopy to the terminal ileum with biopsy. ESTIMATED BLOOD LOSS: COMPLICATIONS: ANESTHESIA: Monitored anesthesia care. ASSISTANTS: SPECIMENS: DESCRIPTION OF PROCEDURE: A history and physical was performed. The risks and benefits of the procedure were explained to the patient, and informed consent was obtained. The patient was placed in the left lateral decubitus position. The Olympus video gastroscope was introduced into the esophagus, stomach, and duodenum. Examination was performed. The scope was removed. He was repositioned for colonoscopy. A digital rectal exam was performed and was found to be normal. The Olympus pediatric video colonoscope was introduced into the rectum and advanced to the cecum. The cecum was identified by transillumination, palpation, and identification of ileocecal valve. Examination was performed. The scope was removed. He tolerated both procedures well, and was returned to the recovery area in stable condition. FINDINGS: Upper endoscopy: 1. Esophagus: The esophagus was normal. 2. Stomach: The stomach showed no evidence of masses or ulcers. There was mild gastritis. Biopsies were obtained from the antrum. 3. Duodenum: The bulb and 2nd portion were within normal limits. Biopsies were obtained from the EG junction and duodenum. Colonoscopy: The terminal ileum was examined and appeared normal. Visualized colonic mucosa was normal. The quality of the prep was good. No polyps were identified. There was moderate sigmoid diverticulosis. Retroflexed examination showed moderate internal hemorrhoids. IMPRESSION: 1. Gastritis. 2. Normal colonoscopy. RECOMMENDATION: 1. Follow up the biopsy results. 2. Repeat colonoscopy is recommended in 10 years for average-risk individuals. MD RAFAEL Pham/ERNSTL / [phone]
== END 2025-04-28 11:57 | disposition home or self-care (01) ==
PROVIDERS: PCP Internal Medicine; Visit Provider Internal Medicine Gastroenterology
PROC: (CPT 45380; principal; 2025-04-28 09:50)
DX: Z12.11 Encounter for screening for malignant neoplasm of colon (principal); K21.9 Gastro-esophageal reflux disease without esophagitis; R19.7 Diarrhea, unspecified; R10.9 Unspecified abdominal pain; E11.9 Type 2 diabetes mellitus without complications; K57.30 Diverticulosis of large intestine without perforation or abscess without bleeding
CPT/HCPCS: 45380; 43239; 82947; 88305; 88313; 88342; 93005; J2003; J2371; J2704; J3010

== ENCOUNTER → 2025-04-28 09:59 | Outpatient (BNV) | payer MEDICARE, SELFPAY | PROVIDERS: PCP Internal Medicine; Visit Provider Internal Medicine | DX: I44.1 Atrioventricular block, second degree (principal); I45.2 Bifascicular block | CPT/HCPCS: 93010 ==